=== PATIENT | female | born 1985 | race Caucasian/White ===

== ENCOUNTER 2017-06-22 14:39 | Emergency (ER) | payer SELFPAY ==
[~2017-06-22] VITALS: Ht 162.6 cm; Wt 60.9 kg
[2017-06-22] MEDS ORDERED: NAPR-58 PO (14:50)
[2017-06-22] MEDS ORDERED: ACETAMINOPHEN 500 MG TABLET PO ONE (16:00)
[2017-06-22] MEDS ORDERED: ONDANSETRON HCL 4 MG TABLET PO ONE (16:00)
[2017-06-22 16:48] LABS: INFLUENZA TYPE B NEGATIVE FOR TYPE B (NEGATIVE)
[2017-06-22 17:30] VITALS: BP 118/82
== END 2017-06-22 17:42 | disposition home or self-care (01) ==
LOC: EMS 14:40
DX: R05 Cough (principal); R11.2 Nausea with vomiting, unspecified; R09.81 Nasal congestion
CPT/HCPCS: 71020; 87804; 99285; Q0162